=== PATIENT | female | born 1975 | race Caucasian/White ===

== ENCOUNTER 2020-06-28 00:36 | Emergency (ER) | payer SELFPAY ==
[~2020-06-28] VITALS: Ht 163.8 cm; Wt 88.0 kg
[2020-06-28] MEDS ORDERED: DICLOFENAC75 MG PO (01:04)
[2020-06-28] MEDS ORDERED: ALBUTEROL108 MCG/AC IN (01:05)
[2020-06-28] MEDS ORDERED: HYDROCODONE/ACE1 TAB PO (01:06)
[2020-06-28] MEDS ORDERED: CYCLOBENZAPRINE10 MG PO (01:07)
[2020-06-28] MEDS ORDERED: TOPIRAMATE25 MG PO (01:08)
[2020-06-28 01:38] LABS: HEMATOCRIT 38.6 % (37.0-47.0); HEMOGLOBIN 12.7 g/dl (12.0-16.0); IMMATURE GRANULOCYTES 0.5 % (0.0-5.0); MEAN CELL VOLUME 87.3 fL CALC (80.0-100.0); MEAN CORPUSCULAR HGB 28.7 pG CALC (26.0-32.0); MEAN CORPUSCULAR HGB CONC 32.9 g/dL CAL (32.0-36.0); NEUT# 3.06 thou/uL (2.00-7.15); RED BLOOD COUNT 4.42 mill/uL (4.20-5.60); RED CELL DISTRI WIDTH 13.3 % (11.5-15.5)
[2020-06-28 01:54] LABS: ALKALINE PHOSPHATASE 89 u/l (38-126); ANION GAP 12 (6-22 (CALC)); BILIRUBIN, TOTAL 0.3 mg/dL (0.0-1.4); BUN 14 mg/dL (7-17); BUN/CREATININE RATIO 17 (12-20 (CALC)); CARBON DIOXIDE 24 mmol/l (22-30); CHLORIDE 103 mmol/l (95-108); CREATININE 0.8 mg/dL (0.5-1.0); GFR > 60 ML/MIN (>=60 (CALC)); GFR FOR AFR.AMER. > 60 ML/MIN (>=60 (CALC)); POTASSIUM 4.6 mmol/l (3.5-5.1); SGOT/AST 37 u/l (14-36); SODIUM 135 mmol/l (137-146); TOTAL PROTEIN 6.9 g/dL (6.3-8.2)
[2020-06-28] MEDS ORDERED: STERAPRED DS10 MG PO (03:15)
[2020-06-28 03:30] VITALS: BP 120/59
== END 2020-06-28 03:30 | disposition home or self-care (01) | DRG 552 ==
LOC: ED 00:36
PROVIDERS: Family Medicine
DX: M51.26 Other intervertebral disc displacement, lumbar region (principal); M47.816 Spondylosis without myelopathy or radiculopathy, lumbar region; J44.9 Chronic obstructive pulmonary disease, unspecified

== ENCOUNTER 2021-02-14 11:16 | Emergency (ER) | payer SELFPAY ==
[~2021-02-14] VITALS: Ht 163.8 cm; Wt 90.9 kg
[~2021-02-14 11:16] MED LIST: ALBUTEROL108 MCG/AC IN; CYCLOBENZAPRINE10 MG PO; DICLOFENAC75 MG PO; HYDROCODONE/ACE1 TAB PO; STERAPRED DS10 MG PO; TOPIRAMATE25 MG PO
[2021-02-14] MEDS ORDERED: TORADOL PO (14:45)
[2021-02-14] MEDS ORDERED: NARCAN4 MG/0.1 M (14:45)
[2021-02-14] MEDS ORDERED: PERCOCET 10/31 COMBO PO (14:45)
[2021-02-14] MEDS ORDERED: ONDANSETRON4 MG PO (14:45)
[2021-02-14 14:53] VITALS: BP 102/64
== END 2021-02-14 14:50 | disposition home or self-care (01) | DRG 897 ==
LOC: ED 11:16
DX: F11.23 Opioid dependence with withdrawal (principal); G89.29 Other chronic pain; M54.5 Low back pain; F17.200 Nicotine dependence, unspecified, uncomplicated

== ENCOUNTER 2021-02-19 13:10 | Emergency (ER) | payer SELFPAY ==
[~2021-02-19] VITALS: Ht 163.8 cm; Wt 82.0 kg
[~2021-02-19 13:10] MED LIST changes: +NARCAN4 MG/0.1 M; +ONDANSETRON4 MG PO; +PERCOCET 10/31 COMBO PO; +TORADOL PO
[2021-02-19 13:43] VITALS: BP 135/74
[2021-02-19] MEDS ORDERED: PERCOCET 5/325M1 TAB PO (15:25)
[2021-02-19] MEDS ORDERED: NARCAN4 MG/0.1 M (15:27)
== END 2021-02-19 16:14 | disposition home or self-care (01) | DRG 552 ==
LOC: ED 13:10
DX: M51.26 Other intervertebral disc displacement, lumbar region (principal); J44.9 Chronic obstructive pulmonary disease, unspecified; F17.200 Nicotine dependence, unspecified, uncomplicated